=== PATIENT | male | born 1975 | race Caucasian/White ===

== ENCOUNTER 2021-05-15 23:42 | Emergency (ER) | payer OTHER ==
[2021-05-16] MEDS ORDERED: LODINE CAP 300300 MG PO (00:30)
== END 2021-05-16 00:35 | disposition home or self-care (01) ==
LOC: ER1 23:42
DX: S86.812A Strain of other muscle(s) and tendon(s) at lower leg level, left leg, initial encounter (principal); F17.210 Nicotine dependence, cigarettes, uncomplicated; Z88.0 Allergy status to penicillin; E78.5 Hyperlipidemia, unspecified; I25.10 Atherosclerotic heart disease of native coronary artery without angina pectoris; Z95.5 Presence of coronary angioplasty implant and graft; X58.XXXA Exposure to other specified factors, initial encounter
CPT/HCPCS: 99283